=== PATIENT | female | born 1980 | race Caucasian/White ===

== ENCOUNTER 2016-11-22 03:17 | Emergency (ER) | payer MEDICAID ==
[2016-11-22] MEDS ORDERED: SODIUM CHLORIDE 0.9% 2,000 ML ONE (04:32)
== END 2016-11-22 07:07 | disposition home or self-care (01) ==
LOC: ER 03:17
DX: R55 Syncope and collapse (principal); D64.9 Anemia, unspecified
CPT/HCPCS: 36415; 80053; 82947; 84439; 84443; 84703; 85025; 93005; 96360; 96361